=== PATIENT | male | born 1945 | race Caucasian/White ===

== ENCOUNTER 2021-02-22 11:17 | Emergency (ER) | payer BC ==
--- NOTE | 2021-02-22 11:49 | EDM.PDOC ---
ED HPI GENERAL MEDICAL PROBLEM - General Chief Complaint: Respiratory Problem Stated Complaint: COVID SYMPTOMS Time Seen by Provider: 02/22/21 11:39 - History of Present Illness INITIAL COMMENTS - FREE TEXT/NARRATIVE: 75-year-old male presents the emergency room with Covid-like symptoms. Patient states that on Wednesday started feeling a little achy all over and it really said and on Wednesday. Today he thinks he has had some loss of taste and smell. He has an intermittent cough but he tries not to cough. The cough thus far is nonproductive. He is not aware of any fevers or chills. He has no abdominal pain no nausea no vomiting no diarrhea. Patient has not had a Covid vaccine. Patient has used some ibuprofen for the discomfort with mixed success Patient enjoys pretty good health he does not have any history of heart or lung problems he is not taking any routine medications. Generalized Pain Score (Numeric/FACES): 8 - Related Data Allergies Allergy/AdvReac Type Severity Reaction Status Date / Time No Known Allergies Allergy Verified 02/22/21 11:36 Home Meds: Home Meds lisinopriL [Lisinopril] 0 mg PO DAILY 02/22/21 [History] Past Medical History HEENT History: Reports: Hard of Hearing Cardiovascular History: Reports: Hypertension Endocrine/Metabolic History: Reports: Obesity/BMI 30+ - Past Surgical History GI Surgical History: Reports: Cholecystectomy Neurological Surgical History: Reports: C-Spine Social & Family History - Tobacco Use Tobacco Use Status *Q: Never Tobacco User - Caffeine Use Caffeine Use: Reports: None - Recreational Drug Use Recreational Drug Use: No ED ROS GENERAL - Review of Systems Review Of Systems: See Below Constitutional: Reports: No Symptoms HEENT: Reports: No Symptoms Respiratory: Reports: Cough. Denies: Shortness of Breath, Pleuritic Chest Pain Cardiovascular: Denies: Chest Pain Endocrine: Reports: Fatigue GI/Abdominal: Reports: No Symptoms, Other (Decreased sense of taste and smell may be coming on today) : Reports: No Symptoms Musculoskeletal: Reports: Other (He has achy all over) Skin: Reports: No Symptoms Neurological: Reports: No Symptoms ED EXAM, GENERAL - Physical Exam Exam: See Below Exam Limited By: No Limitations General Appearance: Alert, No Apparent Distress Eye Exam: Bilateral Eye: Normal Inspection, PERRL Ears: Normal External Exam, Normal Canal, Hearing Grossly Normal, Normal TMs Nose: Normal Inspection, Normal Mucosa, No Blood Throat/Mouth: Normal Inspection, Normal Lips, Normal Teeth, Normal Gums, Normal Oropharynx, Normal Voice, No Airway Compromise Head: Atraumatic, Normocephalic Neck: Normal Inspection, Supple, Non-Tender, Full Range of Motion. No: Lymphadenopathy (L), Lymphadenopathy (R) Respiratory/Chest: No Respiratory Distress, Lungs Clear Cardiovascular: Regular Rate, Rhythm, No Edema, No Murmur GI/Abdominal: Normal Bowel Sounds, Soft, Non-Tender Back Exam: Normal Inspection. No: CVA Tenderness (L), CVA Tenderness (R) Extremities: Normal Inspection, Normal Range of Motion, Non-Tender Neurological: Alert, Oriented, Normal Cognition Course - Vital Signs Last Recorded V/S: Last Vital Signs Temp 36.3 C 02/22/21 11:32 Pulse 69 02/22/21 11:32 Resp 20 02/22/21 15:15 BP 110/67 02/22/21 15:15 Pulse Ox 95 02/22/21 15:15 - Orders/Labs/Meds Orders: Active Orders 24 hr Category Date Time Status Vital Signs [RC] Q15M Care 02/22/21 14:14 Active EPINEPHrine [Adrenalin] Med 02/22/21 14:14 Active 0.3 mg IM ASDIRECTED PRN Famotidine [Pepcid] Med 02/22/21 14:14 Active 20 mg IVPUSH ASDIRECTED PRN Sodium Chloride 0.9% [Saline Flush] Med 02/22/21 14:15 Active 30 ml FLUSH ASDIRECTED diphenhydrAMINE [Benadryl] Med 02/22/21 14:14 Active 50 mg IVPUSH ASDIRECTED PRN methylPREDNISolone Sod Succ [Solu-MEDROL] Med 02/22/21 14:14 Active 125 mg IVPUSH ASDIRECTED PRN Medication Orders Diphenhydramine HCl (Diphenhydramine 50 Mg/Ml Sdv) 50 mg IVPUSH ASDIRECTED PRN PRN Reason: hypersensitivity reaction Epinephrine HCl (Epinephrine 1 Mg/Ml Sdv) 0.3 mg IM ASDIRECTED PRN PRN Reason: hypersensitivity reaction Famotidine (Famotidine 20 Mg/2 Ml Sdv) 20 mg IVPUSH ASDIRECTED PRN PRN Reason: hypersensitivity reaction Methylprednisolone Sodium Succinate (Methylprednisolone Sodium Succinate 125 Mg/2 Ml Sdv) 125 mg IVPUSH ASDIRECTED PRN PRN Reason: hypersensitivity reaction Sodium Chloride (Sodium Chloride 0.9% 10 Ml Syringe) 30 ml FLUSH ASDIRECTED GINA Labs: Laboratory Tests 02/22/21 02/22/21 02/22/21 Range/Units 11:30 12:18 12:18 WBC 4.94 (4.23-9.07) K/mm3 RBC 6.03 (4.63-6.08) M/mm3 Hgb 17.3 (13.7-17.5) gm/dl Hct 51.5 H (40.1-51.0) % MCV 85.4 (79.0-92.2) fl MCH 28.7 (25.7-32.2) pg MCHC 33.6 (32.2-35.5) g/dl RDW Std Deviation 43.2 (35.1-43.9) fL Plt Count 141 L (163-337) K/mm3 MPV 10.4 (9.4-12.3) fl Neut % (Auto) 63.8 (34.0-67.9) % Lymph % (Auto) 20.2 L (21.8-53.1) % [place] % (Auto) 15.6 H (5.3-12.2) % Eos % (Auto) 0 L (0.8-7.0) Baso % (Auto) 0.2 (0.1-1.2) % Neut # (Auto) 3.15 (1.78-5.38) K/mm3 Lymph # (Auto) 1.00 L (1.32-3.57) K/mm3 [place] # (Auto) 0.77 (0.30-0.82) K/mm3 Eos # (Auto) 0.00 L (0.04-0.54) K/mm3 Baso # (Auto) 0.01 (0.01-0.08) K/mm3 D-Dimer, Quantitative 0.46 (0.19-0.50) mg/L Sodium (136-145) mEq/L Potassium (3.5-5.1) mEq/L Chloride (98-107) mEq/L Carbon Dioxide (21-32) mEq/L Anion Gap (5-15) BUN (7-18) mg/dL Creatinine (0.7-1.3) mg/dL Est Cr Clr Drug Dosing mL/min Estimated GFR (MDRD) (>60) mL/min BUN/Creatinine Ratio (14-18) Glucose (70-99) mg/dL Calcium (8.5-10.1) mg/dL Ferritin (26-388) ng/ml Total Bilirubin (0.2-1.0) mg/dL AST (15-37) U/L ALT (16-63) U/L Alkaline Phosphatase (46-116) U/L Lactate Dehydrogenase (85-227) U/L C-Reactive Protein (<1.0) mg/dL Total Protein (6.4-8.2) g/dl Albumin (3.4-5.0) g/dl Globulin gm/dL Albumin/Globulin Ratio (1-2) SARS-CoV-2 RNA (BALTAZAR) Positive H (NEGATIVE) 02/22/21 02/22/21 Range/Units 12:18 12:18 WBC (4.23-9.07) K/mm3 RBC (4.63-6.08) M/mm3 Hgb (13.7-17.5) gm/dl Hct (40.1-51.0) % MCV (79.0-92.2) fl MCH (25.7-32.2) pg MCHC (32.2-35.5) g/dl RDW Std Deviation (35.1-43.9) fL Plt Count (163-337) K/mm3 MPV (9.4-12.3) fl Neut % (Auto) (34.0-67.9) % Lymph % (Auto) (21.8-53.1) % [place] % (Auto) (5.3-12.2) % Eos % (Auto) (0.8-7.0) Baso % (Auto) (0.1-1.2) % Neut # (Auto) (1.78-5.38) K/mm3 Lymph # (Auto) (1.32-3.57) K/mm3 [place] # (Auto) (0.30-0.82) K/mm3 Eos # (Auto) (0.04-0.54) K/mm3 Baso # (Auto) (0.01-0.08) K/mm3 D-Dimer, Quantitative (0.19-0.50) mg/L Sodium 138 (136-145) mEq/L Potassium 4.0 (3.5-5.1) mEq/L Chloride 103 (98-107) mEq/L Carbon Dioxide 28 (21-32) mEq/L Anion Gap 11.0 (5-15) BUN 21 H (7-18) mg/dL Creatinine 2.0 H (0.7-1.3) mg/dL Est Cr Clr Drug Dosing 34.51 mL/min Estimated GFR (MDRD) 33 (>60) mL/min BUN/Creatinine Ratio 10.5 L (14-18) Glucose 104 H (70-99) mg/dL Calcium 8.6 (8.5-10.1) mg/dL Ferritin 249 (26-388) ng/ml Total Bilirubin 0.6 (0.2-1.0) mg/dL AST 46 H (15-37) U/L ALT 49 (16-63) U/L Alkaline Phosphatase 69 (46-116) U/L Lactate Dehydrogenase 216 (85-227) U/L C-Reactive Protein 3.3 H* (<1.0) mg/dL Total Protein 7.4 (6.4-8.2) g/dl Albumin 3.6 (3.4-5.0) g/dl Globulin 3.8 gm/dL Albumin/Globulin Ratio 1.0 (1-2) SARS-CoV-2 RNA (BALTAZAR) (NEGATIVE) Meds: Medications Generic Name Dose Route Start Last Admin Trade Name Freq PRN Reason Stop Dose Admin Diphenhydramine HCl 50 mg 02/22/21 14:14 Diphenhydramine 50 Mg/Ml Sdv IVPUSH ASDIRECTED PRN hypersensitivity reaction Epinephrine HCl 0.3 mg 02/22/21 14:14 Epinephrine 1 Mg/Ml Sdv IM ASDIRECTED PRN hypersensitivity reaction Famotidine 20 mg 02/22/21 14:14 Famotidine 20 Mg/2 Ml Sdv IVPUSH ASDIRECTED PRN hypersensitivity reaction Methylprednisolone Sodium Succinate 125 mg 02/22/21 14:14 Methylprednisolone Sodium Succinate 125 Mg/2 Ml Sdv IVPUSH ASDIRECTED PRN hypersensitivity reaction Sodium Chloride 30 ml 02/22/21 14:15 Sodium Chloride 0.9% 10 Ml Syringe FLUSH ASDIRECTED GINA Discontinued Medications Generic Name Dose Route Start Last Admin Trade Name Layne PRN Reason Stop Dose Admin Acetaminophen 975 mg 02/22/21 11:53 02/22/21 12:23 Acetaminophen 325 Mg Tab PO 02/22/21 11:54 975 mg NOW ONE Administration SOTROVIMAB 500 mg/ Sodium 108 mls @ 216 mls/hr 02/22/21 14:14 02/22/21 14:42 Chloride IV 02/22/21 14:43 216 mls/hr ONETIME ONE Administration - Re-Assessments/Exams Free Text/Narrative Re-Assessment/Exam: 02/22/21 12:03 We will check him look for Covid. The patient is very interested in pursuing monoclonal antibody therapy if indeed he has Covid. 02/22/21 13:53 Chest x-ray does not look too bad for acute changes however there are some left- sided pulmonary nodule in the left lung base at 1.3 cm possible nodules in the left upper lobe measuring 4 mm it is recommended he have a CT to further evaluate these. His Covid test is positive. The patient about the importance of getting CT in follow-up and he agrees to do this. I also discussed with the patient and offered monoclonal antibody therapy and the patient would like to give this a try understanding it is it is experimental. I spoke with the patient to provide information about REGEN-COV treatment. I offered them the Patient and Caregiver EUA REGEN-COV Fact Sheet to read and review. I stated the drug has been approved by an emergency use authorization (EUA} process and has not fully been FDA reviewed or approved. The patient meets the EUA requirements. I discussed there are other potential treatment options that are currently not FDA approved to treat COVID 19. Offered opportunity to ask questions and all questions were answered. The patient voiced understanding and agreed to proceed with treatment. 02/22/21 16:04 Patient has done well with the infusion we will discharge. Departure - Departure Time of Disposition: 16:05 Disposition: Home, Self-Care 01 Clinical Impression: COVID-19 - Discharge Information Referrals: PCP,Not In Area [Primary Care Provider] - Forms: ED Department Discharge Additional Instructions: Return to the emergency room with any questions problems or concerning symptoms. Tylenol as needed for aches and pains. Follow social isolation for 10 days after the onset of your symptoms. You need to follow-up in the hospital clinic after you are done with social isolation discuss getting a CAT scan to look at those lung findings on your x- ray. The phone number to the hospital clinic is [phone] Sepsis Event Note (ED) - Evaluation Sepsis Screening Result: No Definite Risk - Focused Exam Vital Signs: Vital Signs Temp Pulse Resp BP Pulse Ox 02/22/21 15:15 20 110/67 95 02/22/21 11:32 36.3 C 69 16 139/80 94 L - My Orders Last 24 Hours: My Active Orders 02/22/21 14:14 Vital Signs [RC] Q15M EPINEPHrine [Adrenalin] 0.3 mg IM ASDIRECTED PRN Famotidine [Pepcid] 20 mg IVPUSH ASDIRECTED PRN diphenhydrAMINE [Benadryl] 50 mg IVPUSH ASDIRECTED PRN methylPREDNISolone Sod Succ [Solu-MEDROL] 125 mg IVPUSH ASDIRECTED PRN 02/22/21 14:15 Sodium Chloride 0.9% [Saline Flush] 30 ml FLUSH ASDIRECTED - Assessment/Plan Last 24 Hours: My Active Orders 02/22/21 14:14 Vital Signs [RC] Q15M EPINEPHrine [Adrenalin] 0.3 mg IM ASDIRECTED PRN Famotidine [Pepcid] 20 mg IVPUSH ASDIRECTED PRN diphenhydrAMINE [Benadryl] 50 mg IVPUSH ASDIRECTED PRN methylPREDNISolone Sod Succ [Solu-MEDROL] 125 mg IVPUSH ASDIRECTED PRN 02/22/21 14:15 Sodium Chloride 0.9% [Saline Flush] 30 ml FLUSH ASDIRECTED
[2021-02-22] MEDS ORDERED: Acetaminophen 325 MG Tab PO ONE (11:53)
--- NOTE | 2021-02-22 12:31 | CR ---
Chest: Frontal view of the chest was obtained. Comparison: No prior chest imaging is available. Questionable nodule is seen within the right lower lung base measuring 1.3 cm. Equivocal nodule within the left upper lung measuring 4 mm. Lungs otherwise are clear with no acute parenchymal change. Heart size and mediastinum are normal. Prior cervical spine surgery is seen. Slight scoliosis is noted within the spine. Minimal degenerative change is scattered within the spine. Impression: 1. Possible left-sided pulmonary nodules. Consider noncontrast chest CT to further evaluate. 2. Other findings believed to be incidental as noted above. No other acute abnormality is otherwise seen. Diagnostic code #3
[2021-02-22] MEDS ORDERED: diphenhydrAMINE 50 MG/ML SDV IVPUSH PRN (14:14)
[2021-02-22] MEDS ORDERED: EPINEPHrine 1 MG/ML SDV IM PRN (14:14)
[2021-02-22] MEDS ORDERED: methylPREDNISolone Sodium Succinate 125 MG/2 ML SDV IVPUSH PRN (14:14)
[2021-02-22] MEDS ORDERED: Famotidine 20 MG/2 ML SDV IVPUSH PRN (14:14)
[2021-02-22] MEDS ORDERED: Sodium Chloride 0.9% 10 ML Syringe FLUSH SCH (14:15)
== END 2021-02-22 16:18 | disposition home or self-care (01) ==
LOC: JD.ED 11:17
DX: U07.1 COVID-19 (principal); I10 Essential (primary) hypertension; E66.9 Obesity, unspecified; Z68.31 Body mass index [BMI] 31.0-31.9, adult; Z79.899 Other long term (current) drug therapy
CPT/HCPCS: 36415; 71045; 80053; 82728; 83615; 85025; 85379; 86140; 87635; 99283; A9270; M0247; Q0247; U0002

== ENCOUNTER 2021-09-05 14:16 | Emergency (ER) | payer BC, OTHER ==
[2021-09-05] MEDS ORDERED: Sodium Chloride 0.9% 10 ML Syringe FLUSH PRN (15:52)
== END 2021-09-05 19:15 | disposition home or self-care (01) ==
LOC: JD.ED 14:16
DX: I10 Essential (primary) hypertension (principal); E66.9 Obesity, unspecified; Z68.32 Body mass index [BMI] 32.0-32.9, adult; Z79.899 Other long term (current) drug therapy; Z86.16 Personal history of COVID-19
CPT/HCPCS: 36415; 71046; 80053; 83735; 83880; 84484; 85025; 85610; 85730; 93005; 99284; J3490